=== PATIENT | female | born 1970 | race American Indian/Alaskan Native ===

== ENCOUNTER 2020-12-21 20:55 | Emergency (ER) | payer MEDICARE ==
[2020-12-21 21:08] VITALS: BP 104/52
[2020-12-21] MEDS ORDERED: SODIUM CHLORIDE 0.9% 1000 ML 1,000 ML IV ONE (21:12)
--- NOTE | 2020-12-21 21:14 | Event Note ---
ED Screening Note Date of service: 12/21/20 Time: 21:12 ED Screening Note: Patient is a 50-year-old -Swazi female with a history of chronic low back pain who presents to the ED with complaint of acute onset persistent urinary frequency and urgency, hematuria, worsening low back pain and suprapubic pain for the last 3 days. Patient states that each time she voids urine this bright red blood with the urine. Patient also complains of mild dysuria since the onset of the symptoms intermittently. Patient denies fever, chills, nausea, vomiting, diarrhea, dizziness, hematochezia, hematemesis, traumatic injury, vaginal discharge, numbness and tingling or weakness of lower extremities bilaterally. This initial assessment/diagnostic orders/clinical plan/treatment(s) is/are subject to change based on patients health status, clinical progression and re- assessment by fellow clinical providers in the ED. Further treatment and workup at subsequent clinical providers discretion. Patient/guardian urged not to elope from the ED as their condition may be serious if not clinically assessed and managed. Initial orders include: CBC, CMP, urinalysis, normal saline 1 L IV bolus
[2020-12-21 21:32] LABS: Hematocrit 27.3 % (30.3-42.9); Hemoglobin 9.1 gm/dl (10.1-14.3); Mean Corpuscular HGB Conc 33 % (30-34); Mean Corpuscular Volume 92 fl (79-97); Platelet Count 133 K/mm3 (140-440); Red Blood Count 2.98 M/mm3 (3.65-5.03); Red Cell Distribution Width 16.1 % (13.2-15.2)
[2020-12-21 21:49] LABS: Albumin 2.5 g/dL (3.9-5); Calcium 8.3 mg/dL (8.4-10.2)
[2020-12-21 22:41] LABS: RBC Morphology Normal; Total Cells Counted 100
--- NOTE | 2020-12-21 23:41 | Emergency Department Report ---
ED General Adult HPI - General Chief complaint: GI Bleed Stated complaint: BLOOD IN STOOL/LEG SWELLING/ABDOMINAL PAIN PUI?: No Time Seen by Provider: 12/21/20 22:03 Source: patient, RN notes reviewed Mode of arrival: Wheelchair Limitations: No Limitations - History of Present Illness Initial comments: The patient was evaluated in the emergency department for symptoms described in the history of present illness. He/she was evaluated in the context of the global COVID-19 pandemic, which necessitated consideration that the patient might be at risk for infection with the virus that causes COVID-19. Institutional protocols and algorithms that pertain to the evaluation of patients at risk for COVID-19 are in a state of rapid change based on information released by regulatory bodies including the CDC and federal and state organizations. These policies and algorithms were followed during the patient's care in the emergency department. Please note that these policies, procedures and recommendations changed on a rapid basis. The patient is a 50-year-old female. She is not known to myself previously. She does not have a local primary care doctor. She has a history of gastric bypass, performed approximately 20 years ago in [place]. She is not taking multivitamins or nutritional supplementation on a daily basis. She reports that she does not have a primary care doctor. She does have a pain specialist that she sees. She presents to the ER with multiple complaints. First complaint is bloody urination. This is present for a few days. She denies flank pain, dysuria. She specifically denies hematemesis or bright red blood per rectum. Her next complaint is lower extremity aching and swelling. This is present for a few days to a few weeks. She reports that when she walks, her lower extremities feel painful and achy, and she feels like she is "walking on sticks." The patient denies headache, neck pain, chest pain, abdominal pain, new/different shortness of breath. She occasionally takes NSAIDs. She has chronic lower back pain. She denies flank pain. -: Gradual, days(s), week(s) Location: left, right, lower extremity Quality: aching Consistency: intermittent Improves with: rest Worsens with: movement - Related Data Previous Rx's Medication Instructions Recorded Last Taken Type Calcium Carb,Gluc/Mag Ox,Gluc 1 each PO QDAY #30 tablet 12/21/20 Unknown Rx [Calcium Magnesium Caplet] Cholecalciferol (Vitamin D3) 5,000 unit PO DAILY #30 tablet 12/21/20 Unknown Rx [Vitamin D3] Cyanocobalamin (Vitamin B-12) 500 mcg PO QDAY #30 tablet 12/21/20 Unknown Rx [Vitamin B-12] Ferrous Sulfate [Ferrous Sulfate 324 mg PO TID #90 tablet. 12/21/20 Unknown Rx 324 MG] Folic Acid 1 mg PO QDAY #30 tablet 12/21/20 Unknown Rx Thiamine HCl [Vitamin B-1] 100 mg PO QDAY #30 tablet 12/21/20 Unknown Rx Vitamin A 10,000 unit PO QDAY #30 capsule 12/21/20 Unknown Rx Vitamin E 15 mg PO QDAY #30 capsule 12/21/20 Unknown Rx Nitrofurantoin Johnston/M-Cryst 100 mg PO Q12HR #13 capsule 12/22/20 Unknown Rx [Macrobid CAP] Allergies Allergy/AdvReac Type Severity Reaction Status Date / Time No Known Allergies Allergy Verified 11/22/15 00:13 ED Review of Systems ROS: Stated complaint: BLOOD IN STOOL/LEG SWELLING/ABDOMINAL PAIN Other details as noted in HPI Constitutional: malaise. denies: fever Eyes: denies: eye discharge ENT: denies: epistaxis Respiratory: denies: cough Cardiovascular: edema. denies: chest pain Gastrointestinal: denies: abdominal pain Genitourinary: hematuria. denies: urgency, dysuria Musculoskeletal: myalgia Neurological: weakness Hematological/Lymphatic: denies: easy bleeding ED Past Medical Hx - Past Medical History Previous Medical History?: Yes Hx Hypertension: Yes Hx Diabetes: Yes (borderline diabetes not on meds) - Surgical History Past Surgical History?: Yes Additional Surgical History: gastric bypass - Social History Smoking Status: Current Every Day Smoker Substance Use Type: Alcohol - Medications Home Medications: Home Medications Medication Instructions Recorded Confirmed Last Taken Type Calcium Carb,Gluc/Mag Ox,Gluc 1 each PO QDAY #30 tablet 12/21/20 Unknown Rx [Calcium Magnesium Caplet] Cholecalciferol (Vitamin D3) 5,000 unit PO DAILY #30 tablet 12/21/20 Unknown Rx [Vitamin D3] Cyanocobalamin (Vitamin B-12) 500 mcg PO QDAY #30 tablet 12/21/20 Unknown Rx [Vitamin B-12] Ferrous Sulfate [Ferrous Sulfate 324 mg PO TID #90 tablet. 12/21/20 Unknown Rx 324 MG] Folic Acid 1 mg PO QDAY #30 tablet 12/21/20 Unknown Rx Thiamine HCl [Vitamin B-1] 100 mg PO QDAY #30 tablet 12/21/20 Unknown Rx Vitamin A 10,000 unit PO QDAY #30 capsule 12/21/20 Unknown Rx Vitamin E 15 mg PO QDAY #30 capsule 12/21/20 Unknown Rx Nitrofurantoin Johnston/M-Cryst 100 mg PO Q12HR #13 capsule 12/22/20 Unknown Rx [Macrobid CAP] ED Physical Exam - General Limitations: No Limitations General appearance: alert, in no apparent distress, obese - Head Head exam: Present: atraumatic, normocephalic - Eye Eye exam: Present: normal appearance, EOMI. Absent: nystagmus - ENT ENT exam: Present: normal exam, normal orophraynx, mucous membranes moist, normal external ear exam - Neck Neck exam: Present: normal inspection, full ROM. Absent: tenderness, meningismus - Respiratory Respiratory exam: Present: normal lung sounds bilaterally. Absent: respiratory distress, wheezes, rales, rhonchi, stridor, decreased breath sounds - Cardiovascular Cardiovascular Exam: Present: regular rate, normal rhythm, normal heart sounds. Absent: bradycardia, tachycardia, irregular rhythm, systolic murmur, diastolic murmur, rubs, gallop - GI/Abdominal GI/Abdominal exam: Present: soft. Absent: distended, tenderness, guarding, rebound, rigid, pulsatile mass - Rectal Rectal exam: Present: normal inspection, normal rectal tone, heme (-) stool, other (Chaperoned by radiotelegraph operator servicer Aleah). Absent: heme (+) stool, black stool, bloody stool, fecal impaction - Extremities Exam Extremities exam: Present: normal inspection, full ROM, pedal edema (2+ edema in the bilateral lower extremities), other (2+ pulses noted in the bilateral upper and lower extremities. There is no palpable cord. negative Homans sign. Muscular compartments are soft. The pelvis is stable.). Absent: calf tenderness - Back Exam Back exam: Present: normal inspection, full ROM. Absent: tenderness, CVA tenderness (R), CVA tenderness (L), paraspinal tenderness, vertebral tenderness - Neurological Exam Neurological exam: Present: alert (Downgoing plantar reflexes bilaterally), other (No facial droop. Tongue midline. Extraocular movements intact bilaterally. Facial sensation intact to light touch in V1, V2, V3 distribution bilaterally. 5 and a 5 strength in 4 extremities. Sensation intact to light touch in 4 extremities.) - Psychiatric Psychiatric exam: Present: flat affect - Skin Skin exam: Present: warm, dry, intact, normal color. Absent: rash ED Course Vital Signs 12/21/20 12/22/20 21:04 01:08 Temperature 98.9 F Pulse Rate 103 H 85 Respiratory 17 17 Rate Blood Pressure 104/52 O2 Sat by Pulse 95 99 Oximetry ED Medical Decision Making - Lab Data Result diagrams: 12/21/20 21:15 12/21/20 21:15 Vital Signs 12/21/20 21:04 Temperature 98.9 F Pulse Rate 103 H Respiratory 17 Rate Blood Pressure 104/52 O2 Sat by Pulse 95 Oximetry Lab Results 12/21/20 12/21/20 12/21/20 Range/Units 21:15 21:15 23:17 WBC 10.4 (4.5-11.0) K/mm3 RBC 2.98 L (3.65-5.03) M/mm3 Hgb 9.1 L (10.1-14.3) gm/dl Hct 27.3 L (30.3-42.9) % MCV 92 (79-97) fl MCH 30 (28-32) pg MCHC 33 (30-34) % RDW 16.1 H (13.2-15.2) % Plt Count 133 L (140-440) K/mm3 Add Manual Diff Complete Total Counted 100 Seg Neuts % (Manual) 76.0 H (40.0-70.0) % Lymphocytes % (Manual) 8.0 L (13.4-35.0) % Monocytes % (Manual) 13.0 H (0.0-7.3) % Eosinophils % (Manual) 2.0 (0.0-4.3) % Basophils % (Manual) 1.0 (0.0-1.8) % Nucleated RBC % Not Reportable Seg Neutrophils # Man 7.9 H (1.8-7.7) K/mm3 Band Neutrophils # 0.0 K/mm3 Lymphocytes # (Manual) 0.8 L (1.2-5.4) K/mm3 Abs React Lymphs (Man) 0.0 K/mm3 Monocytes # (Manual) 1.4 H (0.0-0.8) K/mm3 Eosinophils # (Manual) 0.2 (0.0-0.4) K/mm3 Basophils # (Manual) 0.1 (0.0-0.1) K/mm3 Metamyelocytes # 0.0 K/mm3 Myelocytes # 0.0 K/mm3 Promyelocytes # 0.0 K/mm3 Blast Cells # 0.0 K/mm3 WBC Morphology Not Reportable Hypersegmented Neuts Not Reportable Hyposegmented Neuts Not Reportable Hypogranular Neuts Not Reportable Smudge Cells Not Reportable Toxic Granulation Not Reportable Toxic Vacuolation Not Reportable Dohle Bodies Not Reportable Pelger-Huet Anomaly Not Reportable Claritza Rods Not Reportable Platelet Estimate Not Reportable Clumped Platelets Not Reportable Plt Clumps, EDTA Not Reportable Large Platelets Not Reportable Giant Platelets Not Reportable Platelet Satelliting Not Reportable Plt Morphology Comment Not Reportable RBC Morphology Normal Dimorphic RBCs Not Reportable Polychromasia Not Reportable Hypochromasia Not Reportable Poikilocytosis Not Reportable Anisocytosis Not Reportable Microcytosis Not Reportable Macrocytosis Not Reportable Spherocytes Not Reportable Pappenheimer Bodies Not Reportable Sickle Cells Not Reportable Target Cells Not Reportable Tear Drop Cells Not Reportable Ovalocytes Not Reportable Helmet Cells Not Reportable [place] Bodies Not Reportable [place] Rings Not Reportable Darya Cells Not Reportable Bite Cells Not Reportable Crenated Cell Not Reportable Elliptocytes Not Reportable Acanthocytes (Spur) Not Reportable Rouleaux Not Reportable Hemoglobin C Crystals Not Reportable Schistocytes Not Reportable Malaria parasites Not Reportable Jesse Bodies Not Reportable Hem Pathologist Commnt No Sodium 141 (137-145) mmol/L Potassium 4.5 (3.6-5.0) mmol/L Chloride 108.8 H (98-107) mmol/L Carbon Dioxide 21 L (22-30) mmol/L Anion Gap 16 mmol/L BUN 44 H (7-17) mg/dL Creatinine 1.6 H (0.6-1.2) mg/dL Estimated GFR 41 ml/min BUN/Creatinine Ratio 28 % Glucose 94 (65-100) mg/dL Calcium 8.3 L (8.4-10.2) mg/dL Total Bilirubin 1.60 H (0.1-1.2) mg/dL AST 31 (5-40) units/L ALT 41 (7-56) units/L Alkaline Phosphatase 163 H (35-129) units/L Total Creatine Kinase (30-135) units/L Total Protein 4.8 L (6.3-8.2) g/dL Albumin 2.5 L (3.9-5) g/dL Albumin/Globulin Ratio 1.1 % Urine Color Carla (Yellow) Urine Turbidity Cloudy (Clear) Urine pH 5.0 (5.0-7.0) Ur Specific [place] 1.014 (1.003-1.030) Urine Protein 100 mg/dl (Negative) mg/dL Urine Glucose (UA) Neg (Negative) mg/dL Urine Ketones Neg (Negative) mg/dL Urine Blood Lg (Negative) Urine Nitrite Pos (Negative) Urine Bilirubin Neg (Negative) Urine Urobilinogen 4.0 (<2.0) mg/dL Ur Leukocyte Esterase Mod (Negative) Urine WBC (Auto) > 182.0 H (0.0-6.0) /HPF Urine RBC (Auto) > 182.0 (0.0-6.0) /HPF U Epithel Cells (Auto) 2.0 (0-13.0) /HPF Urine Bacteria (Auto) 2+ (Negative) /HPF Urine WBC Clumps 3+ /HPF Urine Mucus Few /HPF Urine Yeast (Budding) 3+ /HPF 12/21/20 Range/Units Unknown WBC (4.5-11.0) K/mm3 RBC (3.65-5.03) M/mm3 Hgb (10.1-14.3) gm/dl Hct (30.3-42.9) % MCV (79-97) fl MCH (28-32) pg MCHC (30-34) % RDW (13.2-15.2) % Plt Count (140-440) K/mm3 Add Manual Diff Total Counted Seg Neuts % (Manual) (40.0-70.0) % Lymphocytes % (Manual) (13.4-35.0) % Monocytes % (Manual) (0.0-7.3) % Eosinophils % (Manual) (0.0-4.3) % Basophils % (Manual) (0.0-1.8) % Nucleated RBC % Seg Neutrophils # Man (1.8-7.7) K/mm3 Band Neutrophils # K/mm3 Lymphocytes # (Manual) (1.2-5.4) K/mm3 Abs React Lymphs (Man) K/mm3 Monocytes # (Manual) (0.0-0.8) K/mm3 Eosinophils # (Manual) (0.0-0.4) K/mm3 Basophils # (Manual) (0.0-0.1) K/mm3 Metamyelocytes # K/mm3 Myelocytes # K/mm3 Promyelocytes # K/mm3 Blast Cells # K/mm3 WBC Morphology Hypersegmented Neuts Hyposegmented Neuts Hypogranular Neuts Smudge Cells Toxic Granulation Toxic Vacuolation Dohle Bodies Pelger-Huet Anomaly Claritza Rods Platelet Estimate Clumped Platelets Plt Clumps, EDTA Large Platelets Giant Platelets Platelet Satelliting Plt Morphology Comment RBC Morphology Dimorphic RBCs Polychromasia Hypochromasia Poikilocytosis Anisocytosis Microcytosis Macrocytosis Spherocytes Pappenheimer Bodies Sickle Cells Target Cells Tear Drop Cells Ovalocytes Helmet Cells [place] Bodies [place] Rings [place] Cells Bite Cells Crenated Cell Elliptocytes Acanthocytes (Spur) Rouleaux Hemoglobin C Crystals Schistocytes Malaria parasites Jsese Bodies Hem Pathologist Commnt Sodium (137-145) mmol/L Potassium (3.6-5.0) mmol/L Chloride (98-107) mmol/L Carbon Dioxide (22-30) mmol/L Anion Gap mmol/L BUN (7-17) mg/dL Creatinine (0.6-1.2) mg/dL Estimated GFR ml/min BUN/Creatinine Ratio % Glucose (65-100) mg/dL Calcium (8.4-10.2) mg/dL Total Bilirubin (0.1-1.2) mg/dL AST (5-40) units/L ALT (7-56) units/L Alkaline Phosphatase (35-129) units/L Total Creatine Kinase 97 (30-135) units/L Total Protein (6.3-8.2) g/dL Albumin (3.9-5) g/dL Albumin/Globulin Ratio % Urine Color (Yellow) Urine Turbidity (Clear) Urine pH (5.0-7.0) Ur Specific [place] (1.003-1.030) Urine Protein (Negative) mg/dL Urine Glucose (UA) (Negative) mg/dL Urine Ketones (Negative) mg/dL Urine Blood (Negative) Urine Nitrite (Negative) Urine Bilirubin (Negative) Urine Urobilinogen (<2.0) mg/dL Ur Leukocyte Esterase (Negative) Urine WBC (Auto) (0.0-6.0) /HPF Urine RBC (Auto) (0.0-6.0) /HPF U Epithel Cells (Auto) (0-13.0) /HPF Urine Bacteria (Auto) (Negative) /HPF Urine WBC Clumps /HPF Urine Mucus /HPF Urine Yeast (Budding) /HPF Vital Signs 12/21/20 12/22/20 21:04 01:08 Temperature 98.9 F Pulse Rate 103 H 85 Respiratory 17 17 Rate Blood Pressure 104/52 O2 Sat by Pulse 95 99 Oximetry - Medical Decision Making Differential diagnosis, including but not limited to: Dependent edema, vitamin deficiency, urinary tract infection, obesity Assessment and plan: 50-year-old female with lower extremity dependent edema, complaint of hematuria, without significant abdominal pain, no abdominal tenderness, and discomfort while walking. Patient had no blood on rectal examination. She is found to have a normocytic anemia. She is also found to be hypoalbuminemic, with mild renal insufficiency. Patient counseled extensively on need to remain compliant with outpatient follow-up, and appropriate vitamin supplementation given her history of gastric bypass. She will be started on iron sulfate supplementation, and appropriate vitamins. Urinalysis suggestive of cystitis. Start Macrobid. She will need to follow-up with an outpatient primary care doctor for her numerous chronic issues. Patient is able to walk with assistance, and hold herself up with support. She has a nonfocal motor examination good rectal tone, no saddle anesthesia. For her lower extremity swelling, the aforementioned interventions, diet lifestyle modifications, as well as compression stockings. Critical care attestation.: If time is entered above; I have spent that time in minutes in the direct care of this critically ill patient, excluding procedure time. ED Disposition Clinical Impression: Hypoalbuminemia, Dependent edema, Renal insufficiency, History of gastric bypass, History of hematuria, Anemia Disposition: -01 TO HOME OR SELFCARE Is pt being admited?: No Does the pt Need Aspirin: No Condition: Good Additional Instructions: As we discussed, patient likely developing complications from not taking necessary multivitamins and nutrients, needed typically in patients who have had bariatric surgery/gastric bypass surgery. Please take the prescribed multivitamins as directed. Take the iron sulfate supplementation as directed. Iron sulfate may cause abdominal cramping, constipation, and black stool. Recommend that patient purchase [id number] compression stockings for her lower extremity swelling. Recommend that patient not take Motrin, ibuprofen, Naprosyn, Aleve. Recommend that patient follow-up with her primary care doctor for probable nutritional deficiencies, anemia, lower extremity swelling within the next month. Please return to the emergency room right away with new pain, worsened pain, migration of pain, projectile vomiting, change in mental status, confusion, inability to tolerate liquid feeds, new, worsened or different symptoms not present on the initial emergency room evaluation. Urine cultures were sent today, results will be available in the next 3 to 5 days. Please have a primary care doctor contact the medical records department to obtain culture results. Cultures were sent today, and results will be available in the next 3 to 5 days. Please have your primary care doctor contact the medical records department to obtain culture results. Please take the antibiotics as directed. Prescriptions: Calcium Carb,Gluc/Mag Ox,Gluc [Calcium Magnesium Caplet] 1 each PO QDAY #30 tablet Ferrous Sulfate [Ferrous Sulfate 324 MG] 324 mg PO TID #90 tablet. Folic Acid 1 mg PO QDAY #30 tablet Nitrofurantoin Johnston/M-Cryst [Macrobid CAP] 100 mg PO Q12HR #13 capsule Vitamin A 10,000 unit PO QDAY #30 capsule Thiamine HCl [Vitamin B-1] 100 mg PO QDAY #30 tablet Cyanocobalamin (Vitamin B-12) [Vitamin B-12] 500 mcg PO QDAY #30 tablet Cholecalciferol (Vitamin D3) [Vitamin D3] 5,000 unit PO DAILY #30 tablet Vitamin E 15 mg PO QDAY #30 capsule Referrals: AMANDA SIDDIQUI MD [Staff Physician] - 3-5 Days [facility] [Provider Group] - 3-5 Days [facility]3] PRIMARY CARE [Provider Group] - 3-5 Days Forms: Accompanied Note
[2020-12-22 00:16] LABS: Bacteria,Urine 2+ /HPF (Negative); Bilirubin,Urine NEG (Negative); Blood,Urine LG (Negative); Color,Urine Amber (Yellow); Mucus,Urine FEW /HPF
[2020-12-22] MEDS ORDERED: ACETAMINOPHEN 500 MG TAB PO ONE (00:28)
[2020-12-22 00:32] LABS: RBC,Urine > 182.0 /HPF (0.0-6.0); WBC,Urine > 182.0 /HPF (0.0-6.0)
[2020-12-22] MEDS ORDERED: NITROFURANTOIN MONOHYD/M-CRYST 100 MG CAP PO ONE (00:36)
== END 2020-12-22 01:08 | disposition home or self-care (01) ==
LOC: ED 20:55
DX: N28.9 Disorder of kidney and ureter, unspecified (principal); R60.9 Edema, unspecified; E88.09 Other disorders of plasma-protein metabolism, not elsewhere classified; D64.9 Anemia, unspecified; R31.9 Hematuria, unspecified; I10 Essential (primary) hypertension; E11.9 Type 2 diabetes mellitus without complications; F17.200 Nicotine dependence, unspecified, uncomplicated; Z98.890 Other specified postprocedural states; Z79.899 Other long term (current) drug therapy
CPT/HCPCS: 36415; 80053; 81001; 82550; 85007; 85025; 87086